=== PATIENT | female | born 1945 | race Caucasian/White ===

== ENCOUNTER → 2018-09-15 | Day surgery (SDC) | payer MEDICARE, OTHER ==
[2018-09-09 13:03] LABS: BASOPHILS % 0.4 % (0.0-1.0); EOSINOPHILS # (AUTO) 0.1 (0.0-0.4); EOSINOPHILS % 1.5 % (0.0-6.0); HEMATOCRIT 38.4 % (34.2-44.1); HEMOGLOBIN 12.8 g/dL (12.0-16.0); LYMPHOCYTES # (AUTO) 1.2 (1.0-3.2); MEAN CORPUSCULAR HGB CONC 33.3 g/dL (31-35); MONOCYTES # (AUTO) 0.5 (0.2-0.8); MONOCYTES % 9.3 % (4.4-11.3); NEUTROPHILS # (AUTO) 3.6 (2.1-6.9); NEUTROPHILS % 65.6 % (38.7-80.0); PLATELET COUNT 222 x10e3/uL (140-360); RED CELL DISTRIBUTION WIDTH 12.6 % (11.7-14.4)
[2018-09-09 13:21] LABS: ANION GAP 11.1 mmol/L (8-16); BLOOD UREA NITROGEN 18 mg/dL (7-26); BUN/CREATININE RATIO 24 (6-25); CALCIUM 9.6 mg/dL (8.4-10.2); CARBON DIOXIDE 27 mmol/L (22-29); CHLORIDE 98 mmol/L (98-107); CREATININE, SERUM 0.76 mg/dL (0.57-1.11); EST GLOMERULAR FILTRATION RATE > 60 ML/MIN (60-); GLUCOSE 90 mg/dL (74-118); POTASSIUM 4.1 mmol/L (3.5-5.1); SODIUM 132 mmol/L (136-145)
--- NOTE | 2018-09-09 13:55 | Diagnostic Imaging Report ---
EXAMINATION: PA and lateral views of the chest. COMPARISON: None CLINICAL HISTORY: Preop for right breast cancer DISCUSSION: Lines/tubes: None. Lungs: The lungs are well inflated and clear. There is no evidence of pneumonia or pulmonary edema. Pleura: There is no pleural effusion or pneumothorax. Heart and mediastinum: Cardiomediastinal silhouette is unremarkable. Pulmonary vasculature is normal. Bones and soft tissues: No acute bony abnormalities. Degenerative changes in the thoracic spine IMPRESSION: No acute cardiopulmonary abnormalities. Signed by: Dr. Parveen Henriquez M.D. on 09/09/2018 1:52 PM
[~2018-09-15] MED LIST: ACETAMINOPHEN 1000 MG/100 ML IV ONE; ALENDRONATE SOD70 MG PO; AMLODIPINE BESYL5 MG PO; ASPIR 8181 MG PO; BUPIVACAINE 0.25%/EPI 30ML SDV INJ ONE; CALCIUM 500+D1 EACH PO; CRESTOR10 MG PO; DEXAMETHASONE SOD PHOS INJ 4 MG/ML VIAL ONE; FENTANYL CITRATE/PF 100MCG/2 ML INJ ONE; GLYCOPYRROLATE INJ 1MG/ 5 ML SYR ONE; HYDROCODONE/APAP 7.5MG-325MG 1 EA TAB ONE; HYDROMORPHONE 2MG/ML 2 MG/ML ML ONE; KETOROLAC TROMETHAMINE 30 MG/ML VIAL ONE; LIDOCAINE HCL 1% LOCAL INJ 20 ML VIAL ONE; LIDOCAINE HCL 2% LOCAL INJ 5 ML SDV VIAL INJ ONE; METHYLENE BLUE 1% INJ 10 ML VIAL INJ ONE; MIDAZOLAM HCL 2 MG/2 ML VIAL ONE; NP THYROID60 MG PO; ONDANSETRON HCL INJ 2MG/ML 2ML 2 MG/ML VIAL ONE; PROMETHAZINE HCL (IM) 25 MG/ML VIAL ONE; PROPOFOL IV EMULSION 10 MG/ML 20 ML VIAL ONE; SEVOFLURANE INHAL SOLN 250 ML PEN BTL ONE; [UNRECOGNIZED DRUG - CODE] PO
--- OUTSIDE RECORDS SUMMARY | 2018-09-15 08:56 | XMS REPORT | Clinical Summary ---
Author Author [facility] Organization [facility] Address Unknown Phone Unavailable Care Team Providers Care Accident Investigator Name Role Phone Sanjuana Benitez MD PCP Allergies Comments Active Allergy Reactions Severity Noted Date Amoxicillin 02/25/2017 Medications End Date Status Medication Sig Dispensed Refills Start Date Active irbesartan-hydrochlorothi 0 azide (AVALIDE) 300-12.5 7 mg per tablet Active amLODIPine (NORVASC) 5 mg 0 tablet 7 Active rosuvastatin (CRESTOR) 5 0 MG tablet 7 Active TREE CHIPPER THYROID 30 mg tablet 0 7 Active Problems Problem Noted Date Sensorineural hearing loss (SNHL) of right ear with restricted hearing of 02/25/2017 left ear Social History Date Tobacco Use Types Packs/Day Years Used Former Smoker Comments: quit 50 years ago Alcohol Use Drinks/Week oz/Week Comments Yes Sex Assigned at Date Recorded Not on file Industry Job Start Date Occupation Not on file Not on file Not on file Travel End Travel History Travel Start No recent travel history available. Last Filed Vital Signs Not on file Plan of Treatment Health Maintenance Due Date Last Done Comments BREAST CANCER SCREENING 1993 COLONOSCOPY SCREENING 1993 SHINGLES VACCINES (#1) 1993 65+ PNEUMOCOCCAL VACCINE 01/12/2008 (1 of 2 - PCV13) INFLUENZA VACCINE 09/17/2018 Results Not on fileafter 09/14/2017 Insurance Type Payer Benefit Subscriber ID Effective Phone Address Plan / Dates Group Medicare MEDICARE MEDICARE xxxxxxxxxx 2007- AJIT, PART A AND Present [place] Commercial COMMERCIAL MISC MISC xxxxxxxxxx 2007- COMMERCIAL Present Advance Directives Patient has advance care planning documents on file. For more information, lorraine hammond contact: Ajit Dunbar [address] [place] [address]
--- OUTSIDE RECORDS SUMMARY | 2018-09-15 08:56 | XMS REPORT ---
Author [facility] Address Unknown Phone Unavailable Care Team Providers Care Cushion Assembler Name Role Phone Bunny OCAMPO Unavailable Unavailable Payers Payer Name Policy Type Policy Number Effective Date Expiration Date Problems This patient has no known problems. Allergies, Adverse Reactions, Alerts This patient has no known allergies or adverse reactions. Medications This patient has no known medications. Results Test Description Test Time Test Comments Text Results Atomic Results Result Comments CHEST 2 VIEWS 2018-09-09 13:52:00 [place] [address] Patient Name: RHEA REBOLLEDO MR #: [id number] : 1945 Age/Sex: 73/F Req #: [id number] [facility] Physician: Ordered by: BRISEIDA OCAMPO MD Report #: [id number] Location: OR Room/Bed: Procedure: [id number] DX/CHEST 2 VIEWS Exam Date: 09/09/18 Exam Time: 1245 REPORT STATUS: Signed EXAMINATION: PA and lateral views of the chest. FERMIN RISON: None CLINICAL HISTORY: Preop for right breast cancer DISCUSSION: Lines/tubes: None. Lungs: The lungs are well inflated and clear. There is no evidence of pneumonia or pulmonary edema. Pleura: There is no pleural effusion or pneumothorax. Heart and mediastinum: Cardiomediastinal silhouette is unremarkable. Pulmonary vasculature is normal. Bones and soft tissues: No acute bony abnormalities. Degenerative changes in the thoracic spine IMPRESSION: No acute cardiopulmonary abnormalities. Signed by: Dr. Parveen Henriquez M.D. on 09/09/2018 1:52 PM Dictated By: PARVEEN HENRIQUEZ MD [id number] Transcribed By: NOBLE on 09/09/18 135 COPY TO: BRISEIDA OCAMPO MD SURGICAL SPECIMENS 2018-07-23 08:15:00 RUN DATE: 07/23/18 [facility] *LIVE* PAGE 1 RUN TIME: 08 Specimen Inquiry RUN USER: INTERFACE PATIENT: RHEA REBOLLEDO LOC: MELISSA #: [id number] AGE/SX: 73/F ROOM: RE07/20/18REG DR: Sanjuana Luis MD : 43 BED: DIS: STATUS: PRE REF TLOC: SPEC #: [id number] RECD: 07/21/18 STATUS: VERNA MCQUEEN #: [id number] AUGUSTINE: 07/21/[address]: Sanjuana Luis MD ENTERED: 07/23/18 SP TYPE: SURG SPEC OTHR DR: ORDERED: GM LEVEL 4 CODES: [id number] - BREAST, NOS PROCEDURES: GM LEVEL 4 (Incomplete) TISSUES: 1. BREAST, NOS - Breast, right, 10:00, 6 cm FN, core bx. FINAL DIAGNOSIS Breast, right, 10:00, 6 cm FN, core bx.: Infiltrating duct cell carcinoma, Lawson grade II, tumor present in multiple core biopsies with largest dimension of solid tumor in one core biopsy being 0.7 cm, associated ductal carcinoma in situ, solid type, intermediate grade. GROSS AND MICROSCOPIC GROSS EXAMINATION: Location: Breast, right, 10:00, 6 cm FN, core bx.. Dimensions and appea marco: 1.2 x 0.3 x 0.3 cm. Sections: Entirely submitted. Received in formalin are the above designated biopsies. They are composed of yellow-white fibrofatty tissue. They are submitted for microscopic examination as indicated above. MICROSCOPIC EXAMINATION: Sections of the "Breast, right, 10:00, 6 cm FN, core bx." reveal changes of an infiltrating duct cell carcinoma, Estela grade II. The tumor is composed of sheets and cords of cells having enlarged hyperchromatic irregular nuclei. Mitotic activity is increased. Tumor is present in multiple core biopsies with the greatest dimension of solid tumor in one core biopsy being 0.7 cm. The immunostains for e-cadherin and p63 show the characteristics of a malignant neoplasm. (When special stains have been reviewed, the appropriate positive/negative controls have been reviewed and are appropriately positive/negative). 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 POST-OP DIAGNOSIS ULTRACLIP-coil CONTINUED ON NEXT PAGE ---- RUN DATE: 07/23/18 [facility] *LIVE* PAGE 2 RUN TIME: 814 Specimen Inquiry RUN USER: INTERFACE SPEC #: [id number] PATIENT: RHEA REBOLLEDO #[id number] (Continued) -------- PRE-OP DIAGNOSIS Highly suspicious mass REVIEWED BY: TODD Signed SIGNATURE ON FILE Stefania Saavedra MD 07/23/18 0815 END OF REPORT SURGICAL SPECIMENS 2018-07-23 08:15:00 RUN DATE: 08/02/18 [facility] *LIVE* PAGE 1 RUN TIME: 1053 Specimen Inquiry RUN USER: INTERFACE PATIENT: RHEA REBOLLEDO LOC: MELISSA #: [id number] AGE/SX: 73/F ROOM: RE07/20/18REG DR: Sanjuana Luis MD : 43 BED: DIS: STATUS: PRE REF TLOC: SPEC #: [id number] RECD: 07/21/18 STATUS: VERNA MCQUEEN #: [id number] AUGUSTINE: 07/21/[address] [facility] [address]: Sanjuana Luis MD ENTERED: 07/23/18 SP TYPE: SURG SPEC OTHR DR: ORDERED: GM LEVEL 4 CODES: [id number] - BREAST, NOS PROCEDURES: GM LEVEL 4 (Incomplete) TISSUES: 1. BREAST, NOS - Breast, right, 10:00, 6 cm FN, core bx. ADDENDUM FINDINGS Addendum #1 Entered: 08/01/1845 ER: POSITIVE Tumor Stained: 100%. Intensity: 3+. Michoacano Score: 8. WI: POSITIVE Tumor Stained: 11%. Intensity: 1+. [place]oacano Score: 4. Her2/ehsan: Negative. Score 1+. Ki-67: Low. Tumor Stained: 5%. Intensity: 3+. p53: Negative. Tumor Stained: 4%. Intensity: 1+. REFERENCE RANGES: ER > 1%-Positive; < 1%-Negative. WI > 1%-Positive; < 1%- Negative. Ki-67 < 10%-Low proliferative index; >=10% and <=20%-Intermediate proliferative index; > 20%-High proliferative index. p53 < 10%-Negative; >=10%-Positive. Her2/ehsan 1-2-Otfchqns; 1-gbptyswpn-ykdlou FISH study; 3+- Positive. These tests were performed by IHC in conjunction with the [employer]/APERIO. The material was formalin fixed (6-72 hours), paraffin embedded. While some antibodies have not been approved by the FDA, clearance/approval is not mandated. These antibodies are well documented and clinically accepted prognostic indicators. Known positive and negative control tissue shows appropriate staining. Above prognostic marker results to be used in context with clinical/pathological findings. The College [employer] [place] [employer] (CAP) and the [place] Society of Clinical Oncology (ASCO) joint guideline on testing for Her2/Ehsan status in invasive breast cancer is used to determine if FISH studies are necessary. Please see outside consultation report for clone/intended use, vendor, staining pattern, and QC status. CONTINUED ON NEXT PAGE RUN DATE: 08/02/18 [facility] *LIVE* PAGE 2 RUN TIME: 1053 Specimen Inquiry RUN USER: INTERFACE SPEC #: [id number] PATIENT: RHEA REBOLLEDO #[id number] (Continued) ADDENDUM FINDINGS (Continued) Addendum Signed SIGNATURE ON FILE Stefania Saavedra MD 08/02/18 1052 FINAL DIAGNOSIS Breast, right, 10:00, 6 cm FN, core bx.: Infiltrating duct cell carcinoma, Lawson grade II, tumor present in multiple core biopsies with largest dimension of solid tumor in one core biopsy being 0.7 cm, associated ductal carcinoma in situ, solid type, intermediate grade. GROSS AND MICROSCOPIC GROSS EXAMINATION: Location: Breast, right, 10:00, 6 cm FN, core bx.. Dimensions and appearance: 1.2 x 0.3 x 0.3 cm. Sections: Entirely submitted. Received in formalin are the above designated biopsies. They are composed of yellow-white fibrofatty tissue. They are submitted for microscopic examination as indicated above. MICROSCOPIC EXAMINATION: Sections of the "Breast, right, 10:00, 6 cm FN, core bx." reveal changes of an infiltrating duct cell carcinoma, Lawson grade II. The tumor is composed of sheets and cords of cells having enlarged hyperchromatic irregular nuclei. Mitotic activity is increased. Tumor is present in multiple core biopsies with the greatest dimension of solid tumor in one core biopsy being 0.7 cm. The immunostains for e-cadherin and p63 show the characteristics of a malignant neoplasm. (When special stains have been reviewed, the appropriate positive/negative controls have been reviewed and are appropriately positive/negative). 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 POST-OP DIAGNOSIS ULTRACLIP-coil PRE-OP DIAGNOSIS Highly suspicious mass REVIEWED BY: TODD Signed SIGNATURE ON FILE Stefania Saavedra MD 07/23/18 0815 END OF REPORT
--- NOTE | 2018-09-15 15:37 | Operative Report ---
DATE OF PROCEDURE: 09/15/2018 SURGEON: Chaz Kirby MD PREOPERATIVE DIAGNOSIS: Right breast cancer. POSTOPERATIVE DIAGNOSIS: Right breast cancer. OPERATIONS PERFORMED: Right partial mastectomy with preoperative ultrasound-guided needle localization and intraoperative specimen mammography and right axillary sentinel node biopsy with preoperative mapping. AUTOMATIC PINSETTER MECHANIC: GRAYSON Walsh. ANESTHESIA: General. COMPLICATIONS: None. ESTIMATED BLOOD LOSS: Minimal. DESCRIPTION OF PROCEDURE: With the patient lying in bed in the supine position under good general anesthesia, after having undergone a needle localization of the tumor in the upper-outer quadrant of the right breast and having had the sentinel node nuclear medicine mapping, the right breast was prepped with Betadine solution and draped in the usual manner. An incision was made in the upper outer quadrant of the right breast and the wire was identified and followed to the area in question, which was then slowly and carefully encircled with normal tissue all the way around it. The specimen was then properly oriented and sent for specimen mammography, which confirmed the fact that the specimen was contained within the removed tissue with normal tissue all the way around it. After this was done, the whole area was thoroughly irrigated. Perfect hemostasis was ascertained. The breast tissue was then reapproximated with interrupted sutures of 2-0 chromic and the skin was closed with subcuticular 5-0 Vicryl. An incision was then made in the right axilla, carried down through the subcutaneous tissue and through the superficial fascia. There were two lymph nodes that were mapped in the right axilla and both of this were identified and removed, and sent for pathological examination. The whole area was then thoroughly irrigated. Perfect hemostasis was ascertained. The superficial fascia and subcutaneous tissue were approximated with 2-0 chromic and the skin was closed with subcuticular 5-0 Vicryl. Benzoin, Steri-Strips, and dressings were applied. The sponge, lap, and needle count were correct. The patient tolerated the procedure well and returned to the recovery room in stable condition. MD AJAY Márquez/MODL /[id number]
[2018-09-15 17:30] VITALS: BP 152/83
--- NOTE | 2018-09-21 08:21 | Diagnostic Imaging Report ---
#[id number] - BRSPECRT SPECIMEN: 09/15/2018 Correlation is made to exam dated: 09/15/2018 localization - [facility]. Specimen shows inclusion of biopsy clip with adjacent area of architectural distortion. IMPRESSION: SPECIMEN ANDRAE DANIELS M.D. kw/:09/18/2018 11:44:45 Machine Tank Operator: Adriana YOUNG(R)(M), [facility]
--- NOTE | 2018-09-21 08:21 | Diagnostic Imaging Report ---
THIS REPORT HAS BEEN AMENDED. #[id number] - [id number] ULTRASOUND GUIDED WIRE LOCALIZATION RIGHT BREAST WITH POST DIGITAL MAMMOGRAPHIC IMAGIN09/15/2018 Correlation is made to exams dated: 02/25/2017 mammogram, 06/24/2018 mammogram, 07/09/2018 ultrasound and 07/20/2018 ultrasound biopsy - [facility]. A wire localization using ultrasound guidance was performed for the marker clip located in the right breast at 11 o'clock middle depth. This was described on the previous mammography and ultrasound reports. The skin was prepped in the usual manner. A wire was inserted into the targeted area under ultrasound guidance. Post placement digital mammographic imaging was obtained. IMPRESSION: WIRE LOCALIZATION Wire localization for the marker clip in the right breast at 11 o'clock middle depth was successful. Follow-up with ACR/ACS guidelines. ANDRAE costa/heidi:09/18/2018 11:43:35 Manager Talent Acquisition: Adriana MCGUIRE)(Woo), [facility] AMENDMENT: 10/02/2018 RICO ZHAO M.D. Pathology report from the needle localization and lumpectomy has become available. The report indicates: Infiltrating ductal carcinoma. Please refer to the full report, or consult the hospital pathologist, for additional details.
--- NOTE | 2018-10-05 08:34 | Diagnostic Imaging Report ---
#[id number] - MGDXRT #UNILATERAL RIGHT DIGITAL DIAGNOSTIC MAMMOGRAM: 09/15/2018 Comparison is made to exams dated: 09/15/2018 localization - [facility] and 06/24/2018 mammogram - [facility]. Current study contains 2 films. The tissue of the right breast is predominantly fatty. Wire localization of clip in the upper outer quadrant was performed. Wire tip traverses clip on both views. IMPRESSION: POST PROCEDURE MAMMOGRAM FOR MARKER PLACEMENT RICO ZHAO M.D. ct/penrad:10/02/2018 15:12:30 Deputy Director Of Finance: Adriana West RT(R)(M), [facility] Mammogram BI-RADS: Post-procedure mammogram for marker placement
== END | disposition home or self-care (01) ==
LOC: OR 08:38
PROVIDERS: ATTEND Surgery
DX: C50.411 Malignant neoplasm of upper-outer quadrant of right female breast (principal); Z17.0 Estrogen receptor positive status [ER+]; I10 Essential (primary) hypertension; Z88.0 Allergy status to penicillin; Z01.810 Encounter for preprocedural cardiovascular examination; Z01.812 Encounter for preprocedural laboratory examination; Z01.818 Encounter for other preprocedural examination; Z79.82 Long term (current) use of aspirin
CPT/HCPCS: 19285; 19301; 36415; 38525; 71046; 76098; 77065; 80048; 85025; 88307; 93005; C1769; J0131; J1100; J1170; J1885; J2001 ×2; J2250; J2405; J2550; J2704; J3010; J3490; 76942; 88304